=== PATIENT | male | born 1990 | race Caucasian/White ===

== ENCOUNTER 2016-10-04 22:24 | Emergency (ER) | payer SELFPAY ==
[~2016-10-04 22:24] MED LIST: ALBUTEROL SULF8.5 G2 INH; ALBUTEROL17 GM; AUGMENTIN 875-11 TAB PO; CIPRO500 M2 PO; DICLOFENAC POTA50 M1 PO; DOLACET 5/500 C1 CAP; HYDROCODON-ACE1 EA15 PO; IBUPROFEN IB200 MG PO; IBUPROFEN200 M1 PO; IBUPROFEN200 M3 PO; LEVAQUIN500 MG PO; MOTRIN600 MG PO; MOTRIN800 MG; NORCO 5-325 TA1 EACH PO; NORCO 5/325 TAB1 TAB PO; NORCO 5/3251 TA1 PO; NORCO 7.5/325 T1 TAB PO; NORCO 7.5/3251 TA3 PO; PEN-VEE K500 MG PO; PERCOCET 7.5-31 EACH PO; TYLENOL500 MG PO; ULTRAM50 MG PO; ZOFRAN4 MG PO
[2016-10-04] MEDS ORDERED: ANTIBIOTIC28.4 GM (22:29)
[2016-10-04] MEDS ORDERED: IBUPROFEN600 M1 PO (23:09)
[2016-10-04] MEDS ORDERED: BACTRIM DS TAB1 EAC2 PO (23:10)
== END 2016-10-04 23:15 ==
LOC: EDMED 22:24
DX: L02.414 Cutaneous abscess of left upper limb (principal); F17.200 Nicotine dependence, unspecified, uncomplicated